=== PATIENT | female | born 1945 | race Caucasian/White ===

== ENCOUNTER → 2018-09-06 | Outpatient (CLI) | payer MEDICARE, OTHER ==
--- NOTE | 2018-09-07 10:47 | RADIOLOGY IMAGING REPORT ---
[place] [facility] [place] NAME: Theodore JARAMILLO : [id number] MR: [id number] V: [id number] EXAM DATE: [id number] ORDERING PHYSICIAN: OLGA FERMIN TECHNOLOGIST: Sherrill Ashraf PROCEDURE:BILATERAL DIGITAL SCREENING MAMMOGRAM WITH CAD ASSISTED INTERPRETATION & 3D TOMOSYNTHESIS COMPARISON:Prior mammograms 03/22/12. INDICATIONS:SCREENING FINDINGS: Mildly heterogeneous fibroglandular tissue is seen throughout the breasts. The parenchymal pattern has remained stable allowing for difference in mammographic technique & patient positioning. There is no evidence of malignant appearing mass, malignant appearing calcifications or other secondary sign of malignancy in either breast. DIAGNOSTIC CATEGORY 1--NEGATIVE. RECOMMENDATIONS: ROUTINE MAMMOGRAM AND CLINICAL EVALUATION. IMPRESSION: BIRADS 1: Negative. No significant abnormality is seen. Dictated by: Remedios Matson M.D. on 09/06/2018 at 14:26 Transcribed by: BHARAT on 09/06/2018 at 14:35 Approved by: Remedios Matson M.D. on 09/07/2018 at 10:46 [facility]
== END ==
LOC: MAMO 01:40
PROVIDERS: ATTEND Obstetrics & Gynecology
DX: Z12.31 Encounter for screening mammogram for malignant neoplasm of breast (principal)
CPT/HCPCS: 77063; 77067

== ENCOUNTER → 2018-12-28 | Outpatient (CLI) | payer MEDICARE, OTHER ==
--- NOTE | 2018-12-28 15:42 | RADIOLOGY IMAGING REPORT ---
FACILITY: [facility] [place] PATIENT NAME: Theodore Hinojosa : 1945 MR: [id number] V: [id number] EXAM DATE: ORDERING PHYSICIAN: KATLEYN KEY TECHNOLOGIST: Location: [facility] - [place] Patient: Theodore Hinojosa : 1945 Visit/Account:[id number] Date of Sevice: 12/28/2018 Technique: CHEST PA LAT HISTORY: Cough COMPARISON: None available Findings: The lungs are clear. No pleural effusion or pneumothorax. The cardiomediastinal silhouett e is unremarkable. Impression: 1. No acute cardiopulmonary process. Report Dictated By: Devon Diaz DO at 12/28/2018 3:36 PM Report E-Signed By: Devon Diaz DO at 12/28/2018 3:37 PM WSN:[id number]
== END ==
LOC: RAD 15:06
PROVIDERS: ATTEND Physician Assistant
DX: R05 Cough (principal)
CPT/HCPCS: 71046